=== PATIENT | male | born 1975 | race Caucasian/White ===

== ENCOUNTER 2020-07-26 09:31 | Outpatient (REF) | payer OTHER, SELFPAY | END 2020-07-26 09:32 | disposition home or self-care (01) | LOC: HO.LAB 09:31 | PROVIDERS: Visit Provider Internal Medicine | DX: Z20.828 Contact with and (suspected) exposure to other viral communicable diseases (principal) | CPT/HCPCS: 36415; C9803; U0003 ==

== ENCOUNTER 2021-02-27 16:20 | Outpatient (REF) | payer OTHER, SELFPAY | END 2021-02-27 16:21 | disposition home or self-care (01) | LOC: HO.LAB 16:20 | PROVIDERS: Visit Provider Internal Medicine | DX: Z20.822 Contact with and (suspected) exposure to COVID-19 (principal) | CPT/HCPCS: U0003; U0005 ==

== ENCOUNTER → 2022-12-17 08:19 | Outpatient (BNVA) | payer MEDICAID, SELFPAY | PROVIDERS: PCP Nurse Practitioner Family; Visit Provider Surgery | DX: K42.9 Umbilical hernia without obstruction or gangrene (principal) | CPT/HCPCS: 99202 ==

== ENCOUNTER 2023-01-05 07:03 | Day surgery (SDC) | payer MEDICAID, SELFPAY ==
[2022-12-31 14:52] VITALS: BMI 36.8
[2023-01-01 11:08] VITALS: BMI 35.4
--- NOTE | 2023-01-04 09:10 | HO.ANESPROP2 ---
Documented by User: Michelle Olvera NP 01/04/23 09:10 HPI - Anesthesia Eval Consult details Narrative: 47yo M for Hernia Repair Umbilical,with poss mesh PMFSH Active Problems Active Problems: All Active Problems (Updated 01/01/23 @ 11:14 by Roseanne Artis RN) Obesity (Acute) Umbilical hernia (Acute) Past Medical History Medical History (Updated 01/05/23 @ 07:41 by Gerri Joaquin RN) Fatty liver Flatulence GERD (gastroesophageal reflux disease) History of cardiovascular stress test History of echocardiogram Obesity Onychomycosis Snores Umbilical hernia Family History Family History (Updated 12/17/22 @ 08:33 by LUIS Borrego) Mother Breast cancer Surgical History Surgical History (Updated 12/31/22 @ 15:45 by Roseanne Artis RN) [place] teeth extracted Social History Social History (Updated 12/17/22 @ 08:32 by LUIS Borrego) Are you a primary critical care clinical nurse specialist to a significant other at home: No Do you presently have visiting nurse or other home services: No Alcohol intake: never Patient Tobacco Use Status: Never used Tobacco Have you been hit, kicked, punched, or otherwise hurt by someone within the past year? If so, by whom?: No Are you DNR?: No Advance Directives: No Advance Directives Information Provided: Yes Recently lost weight without trying: No Nutrition Risks: No Nutritional Risk Meds Allergies Allergy/AdvReac Type Severity Reaction Status Date / Time acetaminophen [From Tylenol] AdvReac avoids Verified 12/31/22 15:44 sensitive liver Home Medications Medication Instructions Recorded Confirmed Last Taken Type efinaconazole 10 % topical 1 appl topical BEDTIME 01/01/23 01/01/23 Unknown History solution with applicator (Jublia) Exam Exam Date and Time: January 04, 2023 0910 Height,Weight and Vital Signs: Height 5 ft 9 in Weight 108.862 kg Assessment and Plan Assessment Anesthesia Assessment: Chart Reviewed Documented by User: Ryan Cordoba MD 01/05/23 08:23 [facility] Past Medical History Medical History (Updated 01/05/23 @ 07:41 by Gerri Joaquin RN) Fatty liver Flatulence GERD (gastroesophageal reflux disease) History of cardiovascular stress test History of echocardiogram Obesity Onychomycosis Snores Umbilical hernia Family History Family History (Updated 12/17/22 @ 08:33 by LUIS Borrego) Mother Breast cancer Family history of problems with anesthesia: No Surgical History Surgical History (Updated 12/31/22 @ 15:45 by Roseanne Artis RN) [place] teeth extracted History of Problems with Anesthesia: No Social History Social History (Updated 12/17/22 @ 08:32 by LUIS Borrego) Are you a primary critical care clinical nurse specialist to a significant other at home: No Do you presently have visiting nurse or other home services: No Alcohol intake: never Patient Tobacco Use Status: Never used Tobacco Have you been hit, kicked, punched, or otherwise hurt by someone within the past year? If so, by whom?: No Are you DNR?: No Advance Directives: No Advance Directives Information Provided: Yes Recently lost weight without trying: No Nutrition Risks: No Nutritional Risk Meds Allergies Allergy/AdvReac Type Severity Reaction Status Date / Time acetaminophen [From Tylenol] AdvReac avoids Verified 12/31/22 15:44 sensitive liver Home Medications Medication Instructions Recorded Confirmed Last Taken Type efinaconazole 10 % topical 1 appl topical BEDTIME 01/01/23 01/01/23 Unknown History solution with applicator (Jublia) Exam Airway Mallampati Class: II TM Dist: >3cm Neck ROM: Full Loose/Missing/Broken Teeth: No Heart: ok Lungs: ok Assessment and Plan Final Anesthetic Review Family History of Problems with Anesthesia: No History of Problems with Anesthesia: No NPO: Yes ASA Class: II Final Preanesthetic Review: No Changes in Pt Med Stat, Meds/Allgs Chart Reviewed, Consent Obtained/Reviewed and Anes Risks/Benef Reviewed Patient Risk: Intermediate Procedure Risk: Low Anesthetic Plan Anesthetic Plan: GA and Agree w/ Assess. and Plan Disposition: Standard PACU
[2023-01-05] VITALS (9 sets, daily range): BP systolic 94–127; BP diastolic 57–82; PULSE 53–73; RESP 13–16; TEMP 36.2–36.6; O2SAT 93–97
[2023-01-05] MEDS: Lactated Ringers 1,000 ML 100 ML IVCONT (08:03)
--- NOTE | 2023-01-05 08:07 | MHC.SHP ---
Pre-Procedural Eval Section A Date of Service: 01/05/23 Section B Chief Complaint: Umbilical hernia without obstruction or gangrene Allergies: Allergies Allergy/AdvReac Type Severity Reaction Status Date / Time acetaminophen [From Tylenol] AdvReac avoids Verified 12/31/22 15:44 sensitive liver Plan I have reviewed the history and physical and performed a pertinent physical examination on my patient. No changes have occurred unless specified. Time Spent With Patient Time: Total time managing care of this patient today ____ minutes.
--- NOTE | 2023-01-05 09:06 | P.OP_ITS ---
Operative Note Operative Note Date of Service: 01/05/23 Narrative: Preop diagnosis: Umbilical hernia Postop diagnosis: Umbilical hernia Procedure: Repair of umbilical hernia with Ventralex mesh Surgeon: Martir Rockwell MD assistant manager airside operations: JOE San The patient is a 47-year-old male with an umbilical hernia. He understood the technique of repair with mesh. He was aware of the risks, benefits, and alternatives. He was brought to the operating room. He was placed supine under general anesthesia via laryngeal mask airway. The abdomen was prepped and draped in the usual sterile fashion. A surgical time-out was done. The patient received cefazolin 2 g IV preoperatively. I infiltrated the planned line of incision with lidocaine 1%. I made a supraumbilical transverse surveillance her incision using a blade 15. This carried down with electrocautery through the full-thickness of the skin is felt it is fat until I was able to visualize the hernia. This was fat containing. I sharply dissected the contents of the hernia off of the rest of the subcutaneous layer. I lifted the umbilicus a flap to separate this. Dissect down to the fascia until was able to clearly defined the fascial edges. I divided adhesions during the hernia contents to the fascial edge using Metzenbaum scissors. There was a lot of herniated omental fat could not reduce this through the hernia in view of the narrow neck. I therefore had to excise some of this omental fat. This is clamp and ligated and divided between clamps. This was sent as a specimen. I excising some of this contents, as able to completely reduce the hernia contents to the defect. The hernia defect measured about 1.5 cm. I positioned a small-sized Ventralex mesh flat underneath this fascia. I secured the Prolene straps of the mesh to the fascial edge with Prolene 2 sutures. I closed the fascial defect with a [id number] Maxon 1 stitch. The umbilicus was tacked down to the fascia to recreate the dimple. Subcutaneous layer was reapposed with Polysorb 3-0 sutures interrupted fashion. Skin closure was achieved with falls of 4-0 subcuticular running stitch. Dressings were applied. The area was infiltrated with Marcaine 0.5% for postop EZEQUIEL the procedure was completed. The patient tolerated procedure well. There were no immediate complications. Initial and final counts of sponges and instruments were correct. Estimated blood loss was about 10 cc. The patient was extubated without difficulty and transferred to recovery room with stable vital signs.
[2023-01-05] MEDS: oxyCODONE HCl Immed Release 5 MG TABLET 10 MG PO (09:46)
[2023-01-05] MEDS: Ketorolac Tromethamine 15 MG/ML VIAL IVPUSH (09:57)
== END 2023-01-05 11:06 | disposition home or self-care (01) ==
PROVIDERS: PCP Nurse Practitioner Family; Visit Provider Surgery
PROC: (CPT 49591; principal; 2023-01-05 08:30)
DX: K42.9 Umbilical hernia without obstruction or gangrene (principal); K76.0 Fatty (change of) liver, not elsewhere classified; K21.9 Gastro-esophageal reflux disease without esophagitis; E66.9 Obesity, unspecified; Z68.36 Body mass index [BMI] 36.0-36.9, adult; R06.83 Snoring; Z79.899 Other long term (current) drug therapy; Z88.8 Allergy status to other drugs, medicaments and biological substances
CPT/HCPCS: 49591; 88302; C1781; J0690; J1885; J2250; J2405; J2795; J3010

== ENCOUNTER → 2023-01-20 08:43 | Outpatient (BNVA) | payer MEDICAID, SELFPAY | PROVIDERS: PCP Nurse Practitioner Family; Visit Provider Surgery ==

== ENCOUNTER 2024-02-02 09:01 | Outpatient (AMB) | payer OTHER, MEDICAID, SELFPAY ==
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
== END 2024-02-02 09:57 | disposition home or self-care (01) ==
PROVIDERS: PCP Nurse Practitioner Family; Visit Provider Surgery
DX: R10.33 Periumbilical pain (principal)
CPT/HCPCS: 99213

== ENCOUNTER → 2024-02-02 09:01 | Outpatient (BNVA) | payer MEDICAID, SELFPAY | PROVIDERS: PCP Nurse Practitioner Family; Visit Provider Surgery ==

== ENCOUNTER 2024-05-04 15:34 | Outpatient (AMB) | payer OTHER, MEDICAID, SELFPAY ==
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
[2024-05-04 15:42] VITALS: BMI 34.6
== END 2024-05-04 16:13 | disposition home or self-care (01) ==
PROVIDERS: PCP Nurse Practitioner Family; Visit Provider Surgery
DX: R10.33 Periumbilical pain (principal)
CPT/HCPCS: 99213

== ENCOUNTER → 2024-05-04 15:34 | Outpatient (BNVA) | payer OTHER, MEDICAID, SELFPAY | PROVIDERS: PCP Nurse Practitioner Family; Visit Provider Surgery ==

== ENCOUNTER 2024-06-30 07:43 | Outpatient (REF) | payer OTHER, MEDICAID, SELFPAY | END 2024-06-30 07:44 | disposition home or self-care (01) | LOC: HO.CT 07:43 | PROVIDERS: PCP Nurse Practitioner Family; Visit Provider Surgery | DX: R10.33 Periumbilical pain (principal) | CPT/HCPCS: 74176 ==

== ENCOUNTER → 2024-06-30 07:46 | Outpatient (BNV) | payer MEDICAID, SELFPAY | PROVIDERS: PCP Nurse Practitioner Family; Visit Provider Radiology Diagnostic Radiology | DX: K42.9 Umbilical hernia without obstruction or gangrene (principal) | CPT/HCPCS: 74176 ==

== ENCOUNTER 2024-08-23 09:03 | Outpatient (AMB) | payer OTHER, MEDICAID, SELFPAY ==
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
[2024-08-23 09:07] VITALS: BMI 35.7
--- OUTSIDE RECORDS SUMMARY | 2024-08-23 09:27 | XMS_ITS | Encounter Summary ---
Author Organization [employer] Address [address] [place] [address] Care Team Providers Care Rn Float Name Role Phone Unavailable Primary Care Provider Unavailabl e Encounter Details Date Type Department Care Team (Late st Contact Info) Description 08/08/2024 Orders Only [facility] [address] [place] [address] Provider, MD Ravi Social History Tobacco Use Types Packs/Day Years Used Date Smoking Tobacco: Never Smokeless Tobacco: Never Housing Stability Answer Date Recorded What is your housing situation today? I have cristopher kaur 05/24/[address] you li ve. Do you have problems with any of the following? None of the above 05/24/2023 Food Insecurity Answer Date Recorded Within the past 12 months, y ou worried that your food would run out before you got money to buy more: Never True 05/24/2023 Within the past 12 months,th e food you bought just didn't last and you didn't have enough money to get more: Never True 12/2022 Transportation Answer Date Recorded In the past 12 months, has l ack of transportation kept you from medical appts, meetings, work or from getting things needed for daily living? No 05/24/2023 Utilities Answer Date Recorded In the past 12 months, has t he electric, gas, oil or water company threatened to shut off services in your home? No 05/24/2023 Depression Answer Date Recorded Patient Health Questionnaire-2 Score 0 12/07/2022 Comments Unknown Sex and Gender Information Value Date Recorded Sex Assigned at Unknown 12/02/2022 2:52 PM EDT Legal Sex Male 8:38 PM EDT Gender Identity Choose not to disclose 2:52 PM EDT Sexual Orientation Choose not to disclose 2022 2:52 PM EDT documented as of this encounter Plan of Treatment Not on file documented as of this encounter Procedures Procedure Name Priority Date/Time Associated Diagnosis Comments CT ABDOMEN PELVIS WO CONTRAST Routine 06/30/2024 5:57 PM EST documented in this encounter Results * CT Abdomen Pelvis w/o Contrast (06/30/2024 5:57 PM EST) Anatomical Region Laterality Modality Body, Pelvis, Abdomen Computed T omography Historical Provider MD WHITLOCK CT PROCEDURES Final R esult documented in this encounter Visit Diagnoses Not on filedocumented in this encounter
--- OUTSIDE RECORDS SUMMARY | 2024-08-23 09:27 | XMS_ITS | Clinical Summary ---
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 Normal echocardiogram. Eczema 12/06/2022 Meralgia paresthetica of right side 12/06/2022 NAFLD (nonalcoholic fatty liver disease) 023 Assessment & Plan (12/06/2022 9:07 AM EDT): 04/2017 echogenic liver with mild hepatomegaly, no focal liver lesions Obesity 12/06/2022 Paresthesia of left arm 12/06/2022 Post concussive syndrome 12/06/2022 Onychomycosis 12/06/2022 Umbilical hernia without obstruction and without gangrene 12/06/2022 Encounters Date Type Department Care Team Description 08/08/[address] [facility] MED[facility] [address] [place] [address] ProviderRavi MD 07/31/2024 Telephone [place] [facility] [address] [place] [employer], [place] [id number] Munira Page CMA from Last 3 Months Family History Medical History Relation Name Comments Colon cancer Maternal Grandfather Breast cancer Maternal Grandmother Skin cancer Maternal Grandmother brain tumor Mother's Brother Breast cancer Mother's Sister Relation Name Status Comments Maternal Grandfather Maternal Grandmother Mother's Brother Mother's Sister Social History Tobacco Use Types Packs/Day Years Used Date Smoking Tobacco: Never Smokeless Tobacco: Never Tobacco Cessation:Counseling Given: Not Answered Housing Stability Answer Date Recorded What is [...] t he electric, gas, oil or water [employer] threatened to shut off services in your home? No 05/24/2023 Depression Answer Date Recorded Patient Health Questionnaire-2 Score 0 12/07/2022 Comments Unknown Sex and Gender Information Value Date Recorded Sex Assigned at Unknown 12/02/2022 2:52 PM EDT Legal Sex Male 8:38 PM EDT Gender Identity Choose not to disclose 2:52 PM EDT Sexual Orientation Choose not to disclose 2022 2:52 PM EDT Last Filed Vital Signs Vital Sign Reading Time Taken Comments Blood Pressure 115/75 12/07/2022 9:39 AM EDT Pulse 72 12/07/2022 9:39 AM EDT Temperature 36.8 ??C (98.3 ??F) 12/07/2022 9:39 AM ED T Respiratory Rate 14 12/07/2022 9:39 AM EDT Oxygen Saturation 98% 10/02/2021 1:45 PM EDT Inhaled Oxygen Concentration - - Weight 109 kg (240 lb) 12/07/2022 9:39 AM EDT Height 175.9 cm (5' 9.25 ) 12/07/2022 9:39 AM ED T Body Mass Index 35.19 12/07/2022 9:39 AM EDT Plan of Treatment Health Maintenance Due Date Last Done Comments CT Colonography 1977 Colonoscopy 1977 Colorectal Cancer Screening 1977 FIT DNA/Cologuard 1977 FIT 1977 FOBT 1977 HIV Screening 1977 Sigmoidoscopy 1977 Alcohol/Substance Use Screening 1989 Family Planning (PISQ) 02/06/1992 Hepatitis C Screening 1995 Hepatitis A Vaccines (1 of 2 - Risk 2-dose series) 02/06/1996 Depression Screening 12/08/2023 12/07/2022, 12/07/2022 SDOH Screening 12/08/2023 12/07/2022 Tobacco Screening 12/08/2023 12/07/2022 COVID-19 Vaccine (4 - 2023-2 5 season) 2024 09/14/2021, 04/03/2021, 03/09/2021 Influenza Vaccine (#1) 2024 03/24/2010 Lipid Panel 10/07/2026 10/07/2021 DTaP/Tdap/Td Vaccines (2 - T d or Tdap) 02/03/2027 02/03/2017 Zoster Vaccines (1 of 2) 2027 RSV Patients and Patients Aged 60 years or older (1 - 1-dose 75+ series) 02/06/2052 Hepatitis B Vaccines Completed 10/17/2018, 05/19/2018, 04/18/2018 HIB Vaccines Aged Out No longer eligi ble based on patient's age to complete this topic HPV Vaccines Aged Out No longer eligi ble based on patient's age to complete this topic IPV Vaccines Aged Out No longer eligi ble based on patient's age to complete this topic Meningococcal Vaccine Aged Out No anmol clement eligible based on patient's age to complete this topic Pneumococcal Vaccine: Pediatrics (0 to 5 Years) and At-Risk Patients (6 to 49) Years) Aged Out No longer eligible b ased on patient's age to complete this topic RSV under 20 months Aged Out No longe r eligible based on patient's age to complete this topic Rotavirus Vaccines Aged Out No longer eligible based on patient's age to complete this topic Procedures Procedure Name Priority Date/Time Associated Diagnosis Comments CT ABDOMEN PELVIS WO CONTRAST Routine 06/30/2024 5:57 PM EST LIPID PANEL, STANDARD Routine 10/07/2021 9:49 AM EDT from Last 3 Months or Most Recently Relevant to Health Maintenance Results * CT Abdomen Pelvis w/o Contrast (06/30/2024 5:57 PM EST) Anatomical Region Laterality Modality Body, Pelvis, Abdomen Computed T omography Historical Provider MD WHITLOCK CT PROCEDURES Final R esult * (ABNORMAL) -Lipid Panel (10/07/2021 9:49 AM EDT) LDL CHOLESTEROL, CALCULATED 133(H) (0-130) MG/DL [facility] CHOLESTEROL, TOTAL 196 (<200) MG/DL [facility] HDL CHOL 47 (>39) MG/DL [facility] NON HDL CHOLESTEROL (CALC) 149 (<160) MG/DL [facility] TRIGLYCERIDE 78 (<150) MG/DL [facility] 10/07/2021 9:49 AM EDT Latesha Whiting CONGRESSIONAL ASSISTANT LAB BLOOD ORDERABLES Final Re sult [facility] [address] from Last 3 Months or Most Recently Relevant to Health Maintenance Insurance [facility] [id number]
--- OUTSIDE RECORDS SUMMARY | 2024-08-23 09:27 | XMS_ITS | Encounter Summary ---
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 Role Phone Unavailable Primary Care Provider Unavailabl e Encounter Details Date Type Department Care Team (Late st Contact Info) Description 07/31/2024 Telephone [place] [facility] [address] [place] [address] Munira Page CMA Social History Tobacco Use Types Packs/Day Years [...] EDT Gender Identity Choose not to disclose 05/17/202 3 2:52 PM EDT Sexual Orientation Choose not to disclose 2022 2:52 PM EDT documented as of this encounter Miscellaneous Notes * Telephone Encounter - Rosina Gonzales - 08/01/2024 9:12 AM EST 08/01/24 LMOM to cb and confirm if they are a pt * Telephone Encounter - Latesha Whiting CNP - 07/31/2024 1:[address] ordered by surgeon; no recent OV, please check in with pt to see if he has transferred care elsewhere, thanks * Telephone Encounter - Munira Page CMA - 07/31/2024 1:[address] abdomen and pelvis without contrast was on the [facility] fax machine. This patient has no PCP lasted and last seen 12/07/22. Document to your desk to review documented in this encounter Plan of Treatment Not on file documented as of this encounter Visit Diagnoses Not on filedocumented in this encounter
== END 2024-08-23 09:25 | disposition home or self-care (01) ==
PROVIDERS: PCP Nurse Practitioner Family; Visit Provider Surgery
DX: K42.9 Umbilical hernia without obstruction or gangrene (principal)
CPT/HCPCS: 99213